=== PATIENT | male | born 1945 | race Caucasian/White ===

== ENCOUNTER 2017-04-28 12:38 | Emergency (ER) | payer MEDICARE, BC ==
[2017-04-28] MEDS: Nitroglycerin 0.4 MG Tab.SL SL PRN ×3 (12:42→12:58)
[2017-04-28] MEDS ORDERED: LORazepam 2 MG/ML MDV IVPUSH ONE ×2 (12:53→13:03)
[2017-04-28] MEDS ORDERED: Sodium Chloride 0.9% 1,000 ML IV SCH (13:00)
[2017-04-28] MEDS ORDERED: Nitroglycerin/D5W 25 MG/250 ML BOTTLE ONE (13:36)
[2017-04-28] MEDS ORDERED: Nitroglycerin/D5W 25 MG/250 ML BOTTLE IV SCH (13:45)
[2017-04-28] MEDS ORDERED: Heparin Sodium 5,000 Units/ML Vial IVPUSH ONE (13:47)
[2017-04-28] MEDS ORDERED: Clopidogrel 75 MG Tab PO ONE (13:47)
[2017-04-28] MEDS ORDERED: Heparin Sodium/D5W 25,000 UNITS/500 ML BAG IV SCH (14:00)
--- NOTE | 2017-04-28 15:25 | CR ---
INDICATION: Chest pain. CHEST: A single frontal view of the chest was obtained, revealing the heart to appear slightly prominent with left ventricular contour. The heart likely is at the upper limits of normal in size, but could be minimally enlarged. The aorta is tortuous with calcification in the arch. Overlying EKG leads are noted. An azygos lobe is noted incidentally. An active infiltrate or effusion was not suggested. Lungs appear to be somewhat hyperaerated with interdigitation of the right hemidiaphragm leaf, suggesting the possibility of COPD. IMPRESSION: 1. No acute process. 2. ASHD. 3. Probable COPD. MTDD
--- NOTE | 2017-05-01 12:41 | ER ---
DATE SEEN: 04/28/2017 The patient was seen on arrival at 1230 hours. HISTORY OF PRESENT ILLNESS: This 71-year-old fellow comes in with a chief complaint of chest pain, onset 1130 hours, 5/10 in intensity, has not relented, midsternal, nonradiating with associated diaphoresis. No nausea, lightheadedness, or dizziness. Brought to Emergency Department by spouse. He took 2 regular aspirin today. No previous history of myocardial infarction. He is not on any medication. No history of hypertension. PAST MEDICAL HISTORY: Negative. PREVIOUS SURGERY: Appendectomy, right total knee, and right Dupuytren's contracture surgery. SOCIAL HISTORY: The patient is a nonsmoker. No history of diabetes. No history of myocardial infarction or stroke. 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 REVIEW OF SYSTEMS: Negative for HEENT, except for decreased hearing. Has his own teeth. Denies neck pain, jaw pain, arm pain, back pain, or interscapular pain. CARDIORESPIRATORY: As noted above. No cough. No shortness of breath. No dyspnea on exertion. No orthopnea or PND. No history of arrhythmias. No syncope, near syncope, palpitations, or pedal edema. GI: Denies acid peptic disease, GERD, ulcers, pancreatitis, gallbladder disease, constipation, blood in the stool, black tarry stool, or diarrhea. : Denies frequency, urgency, or dysuria. He does have increased frequency of urination. MUSCULOSKELETAL: Denies arthritis. Denies muscle weakness. He is active. NEURO: Negative. No history of depression, strokes, or seizures. DERMIS: Negative. ENDOCRINE: No temperature intolerance. PHYSICAL EXAMINATION: VITAL SIGNS: Blood pressure 191/101, came down to 156/93 without medicine and before dismissal was 136/93; heart rate 71; temperature is 99; respirations 15; oxygen saturation was 99% on room air. CONSTITUTIONAL: Alert patient, slightly anxious. Mildly overweight. Looks somewhat asthenic for his age. PERRLA intact. Pharynx without abnormality. Gag in place. Uvula midline. NECK: No bruits. No thyromegaly. No masses in the neck. No cervical adenopathy. LUNGS: Clear to auscultation without rales, rhonchi, or wheezes. HEART: S1, S2. No irregular rate or rhythm. No S3, no S4. ABDOMEN: Soft. No guarding. No abdominal discomfort. No tenderness. EXTREMITIES: Without edema. Pulses in bilateral upper and lower extremities intact. Deep tendon reflexes in upper and lower extremities symmetrical and +1. Normoactive. Cranial nerves 2 through 12 intact. Muscle strength intact in upper and lower extremities. PERTINENT LABORATORY AND X-RAY DATA: EKG: poor R-wave progression across the anterior precordium, slight suggestion of ST elevation in lead II, lead III, and aVF. The initial EKG read suggests acute pericarditis. A repeat EKG at 1300 demonstrated more focal changes, ST elevation in lead II and lead III and the poor R-wave progression persistent. Call placed at 1336 before troponin was back, calling it STEMI, cardiolosit called back at 1347. Also, a third EKG demonstrated a new slight elevation of ST-segment in lead V5, and no changes in II, III, or aVF, still a 1-mm elevation and also 0.5-mm elevation in lead II that was not present before. Troponin 0.02. OTHER LABORATORY FINDINGS: Hemoglobin normal and slightly elevated at 15.7, white count normal at 9,900, PMNs 46, lymphs 41, monos 7, and platelets 217,000. D-dimer normal at 394 and glucose 127, slightly elevated. Otherwise remainder of the automated chemistry is completely normal. At 1336, called [facility] and spoke to hospitalist, Dr. Boss. At 1347, his status was discussed with Dr. Freitas, kindergarten prep teacher, and he said the patient should be sent directly to the cath lab radiological technologist. Arrangements made to stat transfer. The patient has been dismissed. The second troponin was not completed before the patient was sent. DIAGNOSES: 1. Unstable angina, possible early [id number] myocardial infarction without elevation of troponin. Second troponin not obtained, but he has new changes in leads II, III, aVF and also lead V5, each close to 1 mm or more elevation. 2. History of appendectomy. 3. Nonsmoker. Does drink alcohol. 4. Dupuytren's contracture treatment of the right hand. 5. Status post total knee arthroplasty, right. 6. Transient hypertension, which resolved. 7. Anxiety, which resolved. Ativan 0.5 mg IV and blood pressure stabilized at 139/93 without tachycardia. /[id number] STEPHANIE/ED ANGLIN
== END 2017-04-28 14:15 ==
LOC: FB.ED 12:38
DX: I20.0 Unstable angina (principal); Z90.49 Acquired absence of other specified parts of digestive tract
CPT/HCPCS: 36415; 71010; 80053; 84484; 85025; 85379; 93005; 96361; 96365; 96375; 96376; 99285; A9270; J1644; J2060; J7040; 93010

== ENCOUNTER 2019-01-08 03:08 | Emergency (ER) | payer MEDICARE, BC ==
--- NOTE | 2019-01-08 04:19 | EDM.PDOC ---
ED HPI GENERAL MEDICAL PROBLEM - General Chief Complaint: Upper Extremity Injury/Pain Stated Complaint: LT THUMB PAIN Time Seen by Provider: 01/08/19 03:35 Source of Information: Reports: Patient History Limitations: Reports: No Limitations - History of Present Illness INITIAL COMMENTS - FREE TEXT/NARRATIVE: 73-year-old male who reports that at approximately 10:30 PM last night he developed a pain in his left thumb. It was a sharp pain that seemed to be worse with movement and with palpation. He wasn't doing anything at the time of the pain came on. He had no chest pain, shortness of breath, diaphoresis, neck pain or back pain associated with this. He had no nausea or vomiting. He hasn't had no symptoms prior to this. 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 He does not remember any injury to his left hand. He rates the pain is about a 4/10. He reports that the pain is been fairly steady and constant since 10:30 PM. He tried to go to bed but gabbed thinking that this could possibly be something related to his heart and decided that he needed to come in to have it evaluated. There are no other associated signs or symptoms. There are no other modifying factors. Onset: Other (10:30 PM on 01/07/2019.) Duration: Constant Location: Reports: Upper Extremity, Left (Left thumb) Quality: Reports: Sharp (And stinging) Severity: Mild Improves with: Reports: None Worsens with: Reports: Movement (Of thumb and with palpation of the area) Context: Reports: Other (No inciting event.) Associated Symptoms: Reports: No Other Symptoms Treatments IT QUALITY ASSURANCE ANALYST: Reports: Other (see below) (Nothing) left hand Pain Score (Numeric/FACES): 4 - Related Data Allergies Allergy/AdvReac Type Severity Reaction Status Date / Time No Known Allergies Allergy Verified 01/08/19 03:18 Home Meds: Home Meds Carvedilol 6.25 mg PO DAILY 01/08/19 [History] Clopidogrel Bisulfate [Clopidogrel] 75 mg PO DAILY 01/08/19 [History] Losartan [Cozaar] 25 mg PO DAILY 01/08/19 [History] atorvaSTATin [Lipitor] 40 mg PO DAILY 01/08/19 [History] Past Medical History HEENT History: Reports: Impaired Vision Cardiovascular History: Reports: CAD, High Cholesterol, Hypertension, [place], Stents , Other (See Below) Other Cardiovascular History: states that he was told that he has a leaky mitral valve. Gastrointestinal History: Reports: GERD Musculoskeletal History: Reports: Arthritis Dermatologic History: Reports: Psoriasis - Infectious Disease History Infectious Disease History: Reports: Chicken Pox, Measles, Mumps, Shingles - Past Surgical History Cardiovascular Surgical History: Reports: Carotid Stents (x one stent) GI Surgical History: Reports: Appendectomy, Colonoscopy Musculoskeletal Surgical History: Reports: Arthroscopic Knee, Knee Replacement Other Musculoskeletal Surgeries/Procedures:: R knee replacement, R hand x 2 Social & Family History - Tobacco Use Smoking Status *Q: Never Smoker Second Hand Smoke Exposure: No - Caffeine Use Caffeine Use: Reports: Coffee, Other Other Caffeine Use: gatorade - Recreational Drug Use Recreational Drug Use: No - Living Situation & Occupation Occupation: Retired Social History Comment: Here by himself Review of Systems - Review of Systems Review Of Systems: See Below Constitutional: Reports: No Symptoms Eyes: Reports: No Symptoms Ears: Reports: No Symptoms Nose: Reports: No Symptoms Mouth/Throat: Reports: No Symptoms Respiratory: Reports: No Symptoms Cardiovascular: Reports: No Symptoms GI/Abdominal: Reports: No Symptoms Genitourinary: Reports: No Symptoms Musculoskeletal: Reports: Joint Pain (Left thumb MCP joint area and the remainder of the left thumb) Skin: Reports: No Symptoms Neurological: Reports: No Symptoms ED EXAM, GENERAL - Physical Exam Exam: See Below Exam Limited By: No Limitations General Appearance: Alert, WD/WN, No Apparent Distress Eye Exam: Bilateral Eye: EOMI, Normal Inspection, PERRL Ears: Normal External Exam Ear Exam: Bilateral Ear: Auricle Normal Nose: Normal Inspection, Normal Mucosa, No Blood Throat/Mouth: Normal Inspection, Normal Oropharynx, Normal Voice, No Airway Compromise Head: Atraumatic, Normocephalic Neck: Normal Inspection, Supple, Non-Tender Respiratory/Chest: No Respiratory Distress, Lungs Clear, Normal Breath Sounds, No Accessory Muscle Use, Chest Non-Tender Cardiovascular: Normal Peripheral Pulses, Regular Rate, Rhythm, No JVD Peripheral Pulses: 2+: Radial (L), Radial (R), Dorsalis Pedis (L), Dorsalis Pedis (R) GI/Abdominal: Normal Bowel Sounds, Soft, Non-Tender, No Organomegaly, No Distention Back Exam: Normal Inspection Extremities: Normal Inspection, Normal Range of Motion, No Pedal Edema, Normal Capillary Refill, Other (Left thumb with tenderness with palpation. No effusion. Redness.) Neurological: Alert, Oriented, CN II-XII Intact, Normal Cognition, Normal Gait, No Motor/Sensory Deficits Skin Exam: Warm, Dry, Intact, Normal Color, No Rash EKG INTERPRETATION EKG Date: 01/08/19 Time: 03:23 Rhythm: NSR Rate (Beats/Min): 58 [place]: LAD-Left [place] Deviation P-Wave: Present QRS: Wide ST-T: Other (flat/biphasic in 3 and aVF. This appears to be old evidence of his previous inferior [place] and nothing acute.) QT: Normal Comparison: Change From Previous EKG (Compared to EKG performed on 04/2017, the appearance 3 and aVF is now biphasic with no borderline elevation as was present in April 2017.) Course - Vital Signs Last Recorded V/S: Last Vital Signs Temp 36.7 C 01/08/19 03:15 Pulse 64 01/08/19 03:15 Resp 17 01/08/19 03:15 BP 145/85 H 01/08/19 03:15 Pulse Ox 97 01/08/19 03:15 - Orders/Labs/Meds Orders: Active Orders 24 hr Category Date Time Status EKG Documentation Completion [RC] ASDIRECTED Care 01/08/19 03:59 Active EKG 12 Lead [EK] Routine Ther 01/08/19 03:58 Ordered Labs: Laboratory Tests 01/08/19 01/08/19 Range/Units 04:05 04:05 Sodium 140 (135-145) mmol/L Potassium 4.1 (3.5-5.3) mmol/L Chloride 106 (100-110) mmol/L Carbon Dioxide 25 (21-32) mmol/L BUN 23 H (7-18) mg/dL Creatinine 0.9 (0.70-1.30) mg/dL Est Cr Clr Drug Dosing 82.63 mL/min Estimated GFR (MDRD) > 60 (>60) BUN/Creatinine Ratio 25.6 H (9-20) Glucose 104 (80-116) mg/dL Calcium 8.8 (8.6-10.2) mg/dL Troponin I < 0.017 L (<0.017-0.056) ng/mL - Re-Assessments/Exams Free Text/Narrative Re-Assessment/Exam: 01/08/19 04:45: Lab tests were unremarkable. The troponin was normal. Reevaluation of the patient at this time showed that he had no chest pain, no shortness of breath, no neck pain, no back pain. I do not think that the thumb pain is related to cardiac etiology. It appears to be musculoskeletal in nature. I discussed this with the patient and answered his questions. I have recommended that he follow-up with his primary doctor for recheck. Departure - Departure Time of Disposition: 04:50 Disposition: Home, Self-Care 01 Condition: Good Clinical Impression: Pain of left thumb, Pain in thumb joint with movement of left hand, Musculoskeletal pain of left upper extremity - Discharge Information Instructions: Musculoskeletal Pain Referrals: Jeremy Francis MD [Primary Care Provider] - Forms: ED Department Discharge Additional Instructions: Your EKG showed no evidence of a heart attack. Your heart enzyme tests was normal. Your left thumb pain does not appear to be related to her heart. I suspect this is musculoskeletal pain from either an injury that occurred during your work yesterday or from arthritis. Follow-up with your primary doctor. Back to the emergency department for chest pain, shortness of breath, back pain, arm pain, jaw pain, neck pain or any other concerning sign or symptom. - My Orders Last 24 Hours: My Active Orders 01/08/19 03:58 EKG 12 Lead [EK] Routine 01/08/19 03:59 EKG Documentation Completion [RC] ASDIRECTED - Assessment/Plan Last 24 Hours: My Active Orders 01/08/19 03:58 EKG 12 Lead [EK] Routine 01/08/19 03:59 EKG Documentation Completion [RC] ASDIRECTED
== END 2019-01-08 04:53 | disposition home or self-care (01) ==
LOC: FB.ED 03:08
DX: M25.542 Pain in joints of left hand (principal); M79.18 Myalgia, other site; I25.10 Atherosclerotic heart disease of native coronary artery without angina pectoris; E78.00 Pure hypercholesterolemia, unspecified; I25.2 Old myocardial infarction; Z95.5 Presence of coronary angioplasty implant and graft; Z79.899 Other long term (current) drug therapy
CPT/HCPCS: 36415; 80048; 84484; 93005; 99283-25